=== PATIENT | female | born 1980 | race Hispanic/Latino ===

== ENCOUNTER 2022-02-19 16:19 | Emergency (ER) | payer OTHER ==
[2022-02-19] MEDS ORDERED: Dexamethasone 10 MG/ML VIAL ONE (18:18)
== END 2022-02-19 18:26 | disposition home or self-care (01) ==
LOC: CSHERS 16:19
DX: T78.40XA Allergy, unspecified, initial encounter (principal)
CPT/HCPCS: 99283; J1100

== ENCOUNTER 2022-12-04 14:42 | Emergency (ER) | payer OTHER ==
[2022-12-04 16:13] LABS: Bilirubin Neg (Negative); Blood, Urine 10 (Negative); Glucose, Urine (Dipstick) Normal (Negative); Ketone, Urine 5 mg/dL (Negative); Leukocyte 100 (Negative); Nitrite Negative (Negative); Protein, Urine (Dipstick) 15 mg/dl (Neg-Trace); Specific Gravity, Urine 1.025 (1.005-1.030)
[2022-12-04 16:22] LABS: Clarity Hazy (Clear)
[2022-12-04 16:24] LABS: CAUTI Indications for Culture Pelvic or flank pain
[2022-12-04 16:26] LABS: Bacteria/HPF 3+ HPF (None Seen); Mucous/LPF 4+ LPF (<2+)
[2022-12-04 16:28] LABS: Urine Culture Reflex No No
== END 2022-12-04 18:25 | disposition home or self-care (01) ==
LOC: CSHERS 14:42
DX: M79.605 Pain in left leg (principal)
CPT/HCPCS: 81001

== ENCOUNTER 2023-04-23 14:05 | Emergency (ER) | payer OTHER | END 2023-04-23 15:45 | disposition home or self-care (01) | LOC: CSHERS 14:05 | DX: H66.91 Otitis media, unspecified, right ear (principal); J02.9 Acute pharyngitis, unspecified | CPT/HCPCS: 99283 ==

== ENCOUNTER 2024-03-27 18:57 | Emergency (ER) | payer SELFPAY ==
[2024-03-27 19:53] LABS: Bilirubin Neg (Negative); Blood, Urine Negative (Negative); Clarity Clear (Clear); Glucose, Urine (Dipstick) Normal (Negative); Ketone, Urine Negative (Negative); Leukocyte Negative (Negative); Nitrite Negative (Negative); Protein, Urine (Dipstick) Negative (Neg-Trace); Urobilinogen Normal mg/dL (Less than 2); pH, Urine 6.5 (5.0-9.0)
[2024-03-27 20:01] LABS: Bacteria/HPF 1+ HPF (None Seen); CAUTI Indications for Culture Pelvic or flank pain; RBC/HPF None Seen HPF (0-3); Squamous Epithelial 0-3 HPF (0-3); Urine Culture Reflex No No; WBC/HPF 0-3 HPF (0-3)
== END 2024-03-27 21:49 | disposition home or self-care (01) ==
LOC: CSHERS 18:57
DX: M54.6 Pain in thoracic spine (principal)
CPT/HCPCS: 81001; 99283

== ENCOUNTER 2025-01-25 15:56 | Emergency (ER) | payer SELFPAY ==
[2025-01-25 17:33] LABS: #Basophils 0.03 10x3/uL (0.0-0.2); #Eosinophils Less than 0.03 10x3/uL (0.0-0.5); #Monocytes 0.05 10x3/uL (0.0-1.1); #Neutrophils 8.32 10x3/uL (1.5-8.4); %Basophils 0.3 % (0.0-2.0); %Eosinophils 0.1 % (0.0-6.0); %Lymphocytes 10.6 % (18.0-47.0); %Monocytes 0.5 % (0.0-10.0); %Neutrophils 88.1 % (40.0-75.0); Hematocrit 41.4 % (34.9-44.5); Hemoglobin 13.3 g/dL (12.0-15.5); Mean Corpuscular Hemoglobin 26.7 pg (27.0-33.0); Mean Corpuscular Volume 83.1 fL (81.6-98.3); Platelet Count 417 10x3/uL (150-450); Red Blood Cell (RBC) Count 4.98 10x6/uL (3.90-5.03); White Blood Cell (WBC) Count 9.45 10x3/uL (3.5-10.5)
[2025-01-25 17:47] LABS: ALT (SGPT) 21 U/L (Less than 34); AST (SGOT) 23 U/L (11-34); Albumin 4.4 g/dL (3.1-4.5); Alkaline Phosphatase 77 U/L (40-110); Anion Gap 12 mmol/L (10-20); BUN (Urea Nitrogen) 15 mg/dL (7.0-18.7); Bilirubin, Total 0.4 mg/dL (0.3-1.2); Calc. Creatinine Clearance 0 mL/min (70-130); Calcium 9.7 mg/dL (7.8-10.44); Carbon Dioxide 23 mmol/L (22-29); Chloride 107 mmol/L (98-107); Globulin 4.6 g/dL (2.4-3.5); Glucose 138 mg/dL (70-105); Potassium 4.1 mmol/L (3.5-5.1); Sodium 138 mmol/L (136-145)
[2025-01-25 17:51] LABS: Troponin I Less than 0.010 ng/mL (< 0.028)
== END 2025-01-25 17:35 | disposition home or self-care (01) ==
LOC: CSHERS 15:56
DX: R06.02 Shortness of breath (principal)
CPT/HCPCS: 36415; 71045; 80053; 84484; 85025; 93005; 94760

== ENCOUNTER 2025-06-08 12:46 | Emergency (ER) | payer SELFPAY ==
[2025-06-08] MEDS ORDERED: Ondansetron PF 4 MG/2 ML Vial ONE (13:55)
[2025-06-08 14:27] LABS: Glucose, Urine (Dipstick) Normal (Negative); Leukocyte Negative (Negative); Protein, Urine (Dipstick) Negative (Neg-Trace); Specific Gravity, Urine 1.010 (1.005-1.030)
[2025-06-08 14:38] LABS: Bacteria/HPF 1+ HPF (None Seen); CAUTI Indications for Culture Dysuria,urgency,freq; RBC/HPF 0-3 HPF (0-3); WBC/HPF 0-3 HPF (0-3)
[2025-06-08 14:40] LABS: Urine Culture Reflex No No
[2025-06-08 14:54] LABS: #Basophils 0.05 10x3/uL (0.0-0.2); #Eosinophils 0.22 10x3/uL (0.0-0.5); #Monocytes 0.41 10x3/uL (0.0-1.1); #Neutrophils 5.08 10x3/uL (1.5-8.4); %Basophils 0.6 % (0.0-2.0); %Eosinophils 2.8 % (0.0-6.0); %Lymphocytes 25.0 % (18.0-47.0); %Monocytes 5.3 % (0.0-10.0); %Neutrophils 65.9 % (40.0-75.0); Hematocrit 37.1 % (34.9-44.5); Hemoglobin 12.4 g/dL (12.0-15.5); Mean Corpuscular Hemoglobin 27.6 pg (27.0-33.0); Mean Corpuscular Volume 82.4 fL (81.6-98.3); Platelet Count 380 10x3/uL (150-450); Red Blood Cell (RBC) Count 4.50 10x6/uL (3.90-5.03); White Blood Cell (WBC) Count 7.72 10x3/uL (3.5-10.5)
[2025-06-08 15:10] LABS: BHCG - Serum Negative (NEGATIVE); Pregs Control Background? CLEAR/WHITE (CLR/WHITE); Pregs Control Bar Appear? YES (CONTROL BAR)
[2025-06-08 15:11] LABS: ALT (SGPT) 19 U/L (Less than 34); AST (SGOT) 21 U/L (11-34); Albumin 3.9 g/dL (3.1-4.5); Alkaline Phosphatase 78 U/L (40-110); Anion Gap 12 mmol/L (10-20); BUN (Urea Nitrogen) 12 mg/dL (7.0-18.7); Bilirubin, Total 0.4 mg/dL (0.3-1.2); Calc. Creatinine Clearance 0 mL/min (70-130); Calcium 9.2 mg/dL (7.8-10.44); Carbon Dioxide 24 mmol/L (22-29); Chloride 106 mmol/L (98-107); Globulin 4.2 g/dL (2.4-3.5); Glucose 108 mg/dL (70-105); Lipase 20 U/L (8-78); Potassium 4.0 mmol/L (3.5-5.1); Sodium 138 mmol/L (136-145)
== END 2025-06-08 15:33 | disposition home or self-care (01) ==
LOC: CSHERS 12:46
DX: N39.0 Urinary tract infection, site not specified (principal)
CPT/HCPCS: 74177; 80053; 81001; 83690; 84703; 85025; 96374; J2405